=== PATIENT | female | born 2000 | race Caucasian/White ===

== ENCOUNTER 2023-12-20 10:49 | Outpatient (CLI) | payer MEDICAID | END 2023-12-20 23:59 | disposition home or self-care (01) | LOC: RAD 10:49 | PROVIDERS: ATTEND Nurse Practitioner Obstetrics & Gynecology | DX: O09.92 Supervision of high risk pregnancy, unspecified, second trimester (principal); Z3A.20 20 weeks gestation of pregnancy | CPT/HCPCS: 76805; 76811 ==

== ENCOUNTER 2024-01-25 12:29 | Outpatient (CLI) | payer MEDICAID | END 2024-01-25 23:59 | disposition home or self-care (01) | LOC: RAD 12:29 | PROVIDERS: ATTEND Obstetrics & Gynecology | DX: O09.92 Supervision of high risk pregnancy, unspecified, second trimester (principal); Z3A.26 26 weeks gestation of pregnancy | CPT/HCPCS: 76805 ==